=== PATIENT | female | born 1930 | race Caucasian/White ===

== ENCOUNTER 2017-01-12 14:05 | Emergency (ER) | payer OTHER ==
--- NOTE | ~2017-01-12 | EKG ---
PATIENT: OPHELIA ALEXANDRE UNIT #: [id number] Ventricular Rate: 81 BPM Atrial Rate: 81 BPM P-R Interval: 170 ms QRS Duration: 174 ms Q-T Interval: 440 ms QTC Calculation(Bezet): 511 ms P [place]: 40 degrees Calculated R [place]: -63 degrees Calculated T [place]: 100 degrees Diagnosis Line: Electronic ventricular pacemaker Diagnosis Line: No previous ECGs available Diagnosis Line: Confirmed by ALONSO GARCIA MD ([id number]) on Diagnosis Line: 01/14/2017 4:45:23 PM INTERPRETING MD: RADHA HENDERSON
[2017-01-12] MEDS ORDERED: NORVASC10 MG PO (14:12)
[2017-01-12] MEDS ORDERED: WATER PILL (14:12)
[2017-01-12] MEDS ORDERED: ASPIRIN81 MG PO (14:13)
[2017-01-12 15:25] LABS: BASOPHIL% 0.3 % (0-2.5); EOSINOPHIL% 0.1 % (0.0-7.0); HEMATOCRIT 44.7 % (35.0-45.0); HEMOGLOBIN 14.9 gm/dL (12.0-16.0); LYMPHOCYTE# 1.6 X10e3 (1.0-3.5); LYMPHOCYTE% 14.8 % (17.0-45.0); MEAN CELL VOLUME 84.9 FL (83-96); MEAN CORPUSCULAR HEMOGLOBIN 28.3 PG (28-34); MEAN CORPUSCULAR HGB CONC 33.4 g/dL (30-36); MEAN PLATELET VOLUME 8.6 FL (6.5-11.5); MONOCYTE# 0.7 X10e3 (0-1.0); MONOCYTE% 6.4 % (3.0-12.0); NEUTROPHIL# 8.3 X10e3 (1.5-7.1); NEUTROPHIL% 78.4 % (40-75); PLATELET COUNT 287 X10e3 (140-420); RED BLOOD COUNT 5.27 X10e (3.90-5.30); RED CELL DISTRIBUTION WIDTH 13.8 % (11.0-15.5); WHITE BLOOD COUNT 10.6 X10e3 (4.0-10.5)
[2017-01-12 15:32] LABS: DIFF IND NO
[2017-01-12 15:38] LABS: ALBUMIN SERUM 4.3 g/dL (3.5-5.0); ALKALINE PHOSPHATASE 70 U/L (32-92); ALT (SGPT) 15 U/L (10-40); AST (SGOT) 19 U/L (10-42); BILIRUBIN, DIRECT <0.1 mg/dL (0.0-0.2); BILIRUBIN,INDIRECT 0.3 mg/dL (0.0-0.9); BILIRUBIN,TOTAL 0.4 mg/dL (0.2-2.0); BLOOD UREA NITROGEN 15 mg/dL (9-23); BUN/CREATININE RATIO 18.75; CALCIUM SERUM 9.1 mg/dL (8.4-10.2); CARBON DIOXIDE 24 mmol/L (22-31); CHLORIDE 106 mmol/L (100-111); CREATININE SERUM 0.8 mg/dL (0.6-1.4); GLOM FILT RATE Estimated 67.8 mL/min (>60); GLUCOSE FASTING 107 mg/dL (70-110); POTASSIUM 3.6 mmol/L (3.5-5.1); PROTEIN TOTAL SERUM 7.9 g/dL (6.0-8.3); SODIUM 137 mmol/L (135-145)
[2017-01-12 15:54] LABS: URINE SOURCE CLEAN CATCH
[2017-01-12 15:57] LABS: URINE APPEARANCE CLEAR; URINE BILIRUBIN NEG (NEG); URINE BLOOD 1+ (NEG); URINE COLOR YELLOW; URINE GLUCOSE NEG (NORM); URINE KETONE NEG (NEG); URINE LEUKOCYTE ESTERASE NEG (NEG); URINE NITRATE NEG (NEG); URINE PROTEIN NEG (NEG); URINE UROBILINOGEN 0.2 MG/DL (NORM)
[2017-01-12 15:59] LABS: MICRO INDICATED? YES
[2017-01-12 16:03] LABS: CULTURE INDICATED? YES; URINE BACTERIA NEG (NEG)
[2017-01-12 16:04] LABS: URINE GRANULAR CAST 0-2 /[HPF]; URINE HYALINE CAST 0-2 /[HPF]; URINE MUCUS PRESENT; URINE SQUAMOUS EPITHELIAL CELL FEW /[HPF]; URINE TRANSITIONAL EPI CELLS OCCAS /[HPF]
[2017-01-12 16:16] LABS: POC - CKMB <1.0 ng/mL (0.0-7.9); POC - TROPONIN <0.05 ng/mL (<=0.05)
== END 2017-01-12 17:49 | disposition home or self-care (01) ==
LOC: SED 14:05
PROVIDERS: Emergency Medicine
DX: R42 Dizziness and giddiness (principal); Z79.899 Other long term (current) drug therapy
CPT/HCPCS: 36415; 80048; 80076; 81003; 82553; 84484; 85025; 87086; 93005; 96360; 99284